=== PATIENT | female | born 1995 | race Two or more races ===

== ENCOUNTER 2022-02-19 13:02 | Emergency (ER) | payer OTHER ==
[~2022-02-19] VITALS: Ht 167.6 cm; Wt 55.8 kg
== END 2022-02-20 | disposition home or self-care (01) ==
LOC: ER 13:02
DX: R42 Dizziness and giddiness (principal)

== ENCOUNTER 2022-04-14 12:48 | Outpatient (CLI) | payer OTHER | END 2022-04-14 13:05 | disposition home or self-care (01) | LOC: PPH VACUNA 12:48 | PROVIDERS: ATTEND Emergency Medicine Pediatric Emergency Medicine | DX: Z23 Encounter for immunization (principal) ==

== ENCOUNTER 2022-05-04 12:54 | Outpatient (CLI) | payer OTHER | END 2022-05-04 13:37 | disposition home or self-care (01) | LOC: LAB 12:54 | PROVIDERS: ATTEND Obstetrics & Gynecology | DX: N91.1 Secondary amenorrhea (principal) ==

== ENCOUNTER 2022-05-11 11:33 | Outpatient (CLI) | payer OTHER | END 2022-05-11 12:00 | disposition home or self-care (01) | LOC: SONOGRAMA 11:33 | PROVIDERS: ATTEND Obstetrics & Gynecology | DX: N91.1 Secondary amenorrhea (principal) ==